=== PATIENT | male | born 1955 | race Caucasian/White ===

== ENCOUNTER 2018-03-28 19:10 | Emergency (ER) | payer OTHER ==
[2018-03-28 19:28] VITALS: BP 137/93; PULSE 59; TEMP 98.5; BMI 25.3
[2018-03-28] MEDS ORDERED: IBUPROFEN 600 MG TABLET (FP) PO ONE ×2 (19:36→19:41)
--- NOTE | 2018-03-28 19:36 | PDOC ---
History of Present Illness - General History Source: Patient Exam Limitations: No Limitations - History of Present Illness Initial Comments: 03/28/18 19:40 The patient is a 62 year old male presenting with his , who presents to the ED complaining of with chest pain onset today. He reports that he was walking when he slipped on ice and made a windmill like motion but did not fall. He notes that hours later he began to feel a pain on the left side of his chest which is mild in severity. He denies any radiation of the pain and reports pain exacerbation when he takes a deep breath. He denies taking any medication for the pain. He went to an urgent care prior to coming to the ED and had an EKG that was normal. He came to the ED for a second opinion. He reports that his father had an CT in his 70s and recovered. The patient denies shortness of breath, headache and dizziness. Denies fever, chills, nausea, vomiting, diarrhea or constipation. PAST MEDICAL HISTORY: no significant history PAST SURGICAL HISTORY: hernia surgery FAMILY HISTORY: no pertinent history SOCIAL HISTORY: Pt lives with family and is employed. MEDICATIONS: reviewed ALLERGIES: As per nursing notes GENERAL: The patient is awake, alert, and fully oriented, in no acute distress. HEAD: Normal with no signs of trauma. EYES: Pupils equal, round and reactive to light, extraocular movements intact, sclera anicteric, conjunctiva clear. EXTREMITIES: Normal range of motion, no edema. NEUROLOGICAL: Normal speech, normal gait. PSYCH: Normal mood, normal affect. SKIN: Warm, Dry, normal turgor, no rashes or lesions noted. <You Crews - Last Filed: 03/28/18 19:40> - General History Source: Patient Exam Limitations: No Limitations - History of Present Illness Initial Comments: 03/28/18 19:37 A portion of this note was documented by scribe services under my direction. I have reviewed the details of the note, within reason, and agree with the documentation with the following case summary and management plan written by me. Patient treated in the ED. Nursing notes are reviewed and incorporated into the medical decision-making. Vital signs reviewed. Assessment plan: This is 62-year-old male who slipped and nearly fell on the ice this morning. Patient said he did a lot of wind mentally but was able to regain his balance. This happened about 9 AM this morning approximately 6 hours later patient developed left-sided chest pain. Worse with movement and worse with coughing worse with deep breath. Patient has no cardiac risk factors other than a family history of coronary artery disease with father who had a heart attack. Patient's EKG shows sinus bradycardia cardiac rate of [address]-T wave changes Cardiac enzymes will be sent if they are normal patient will be discharged home with a diagnosis of muscle strain and told to take anti-inflammatories. Patient will be given Motrin in the ED here 03/28/18 20:42 Patient's heart score is to his troponin is negative. Patient discharged home on NSAIDs <Kelly Nair I - Last Filed: 03/28/18 20:42> - General Chief Complaint: Injury Stated Complaint: KEFT SIDE CHEST PAIN Time Seen by Provider: 03/28/18 19:12 Past History <You Crews - Last Filed: 03/28/18 19:40> - Past Medical History COPD: No - Suicide/Smoking/Psychosocial Hx Smoking History: Never smoked Have you smoked in the past 12 months: No Information on smoking cessation initiated: No Hx Alcohol Use: No Drug/Substance Use Hx: No <Kelly Nair I - Last Filed: 03/28/18 20:42> - Past Medical History Allergies/Adverse Reactions: Allergies Allergy/AdvReac Type Severity Reaction Status Date / Time doxycycline Allergy Verified 03/28/18 19:12 Home Medications: Ambulatory Orders NK [No Known Home Medication] 03/28/18 *Physical Exam - Vital Signs Last Vital Signs Temp Pulse Resp BP Pulse Ox 98.5 F 59 L 20 137/93 98 03/28/18 19:11 03/28/18 19:11 03/28/18 19:11 03/28/18 19:11 03/28/18 19:11 <You Crews - Last Filed: 03/28/18 19:40> - Vital Signs Last Vital Signs Temp Pulse Resp BP Pulse Ox 98.5 F 59 L 20 137/93 98 03/28/18 19:11 03/28/18 19:11 03/28/18 19:11 03/28/18 19:11 03/28/18 19:11 <Kelly Nair I - Last Filed: 03/28/18 20:42> Moderate Sedation - Procedure Monitoring Vital Signs: Procedure Monitoring Vital Signs Temperature 98.5 F 03/28/18 19:11 Pulse Rate 59 L 03/28/18 19:11 Respiratory Rate 20 03/28/18 19:11 Blood Pressure 137/93 03/28/18 19:11 O2 Sat by Pulse Oximetry (%) 98 03/28/18 19:11 <You Crews - Last Filed: 03/28/18 19:40> - Procedure Monitoring Vital Signs: Procedure Monitoring Vital Signs Temperature 98.5 F 03/28/18 19:11 Pulse Rate 59 L 03/28/18 19:11 Respiratory Rate 20 03/28/18 19:11 Blood Pressure 137/93 03/28/18 19:11 O2 Sat by Pulse Oximetry (%) 98 03/28/18 19:11 <Kelly Nair I - Last Filed: 03/28/18 20:42> Heart Score/ECG Review - History History: Slightly suspicious - Electrocardiogram EKG: Normal - Age Age: 45-65 - Risk Factors Risk Factors Heart Score: Yes Positive family hx of cardiac disease Based on the list above the patient has:: 1-2 risk factors - Troponin Troponin: </= normal limit - Score Heart Score - Total: 2 <Kelly Nair I - Last Filed: 03/28/18 20:42> *DC/Admit/Observation/Transfer - Attestations Scribe Attestion: 03/28/18 19:40 Documentation prepared by You Crews, acting as director of graduate medical education for Kelly Nair MD <You Crews - Last Filed: 03/28/18 19:40> - Discharge Dispostion Decision to Admit order: No <Kelly Nair I - Last Filed: 03/28/18 20:42> Diagnosis at time of Disposition: Muscle strain of chest wall Qualifiers: Encounter type: initial encounter Qualified Code(s): S29.011A - Strain of muscle and tendon of front wall of thorax, initial encounter - Discharge Dispostion Disposition: HOME - Patient Instructions Additional Instructions: It is important that you take an anti-inflammatory for the next 3-4 days. Take ibuprofen 3 tablets 3 times a day with food for 3-4 days. Return to the emergency department immediately with ANY new, persistent or worsening symptoms. Continue any medications as previously prescribed by your physician. You should follow up with your primary doctor as soon as possible regarding today's emergency department visit. . Please make sure your doctor reviews the results of your emergency evaluation. Thank you for coming to the Emergency Department today for your care. It was a pleasure to see you today. Please note that your evaluation is INCOMPLETE until you follow-up with your doctor.
--- NOTE | 2018-03-29 15:45 | EKG ---
Test Reason : Blood Pressure : / mmHG Vent. Rate : 059 BPM Atrial Rate : 059 BPM P-R Int : 186 ms QRS Dur : 100 ms QT Int : 420 ms P-R-T Axes : 069 -35 017 degrees QTc Int : 415 ms SINUS BRADYCARDIA LEFT AXIS DEVIATION ABNORMAL ECG NO PREVIOUS ECGS AVAILABLE Confirmed by CHAVO MEDINA, MIYA ([id number]) on 03/29/2018 3:45:01 PM Referred By: MD CACERES Confirmed By:MIYA TONY MD
== END 2018-03-28 20:49 | disposition home or self-care (01) ==
LOC: FER 19:10
DX: S29.011A Strain of muscle and tendon of front wall of thorax, initial encounter (principal); X58.XXXA Exposure to other specified factors, initial encounter; Y93.89 Activity, other specified; Y92.89 Other specified places as the place of occurrence of the external cause
CPT/HCPCS: 36415; 82550; 82553; 84484; 93005; 99282-25

== ENCOUNTER 2018-04-06 04:35 | Emergency (ER) | payer OTHER ==
[2018-04-06 04:47] VITALS: TEMP 98; BMI 25.3
--- NOTE | 2018-04-06 04:56 | PDOC ---
History of Present Illness - General Chief Complaint: Pain, Acute Stated Complaint: LT GROIN/ABDOMINAL PAIN Time Seen by Provider: 04/06/18 04:56 History Source: Patient Exam Limitations: No Limitations - History of Present Illness Initial Comments: 04/06/18 05:21 This is a 62-year-old male who comes in complaining of acute onset about 2 hours ago of left testicular and left lower quadrant abdominal pain. Patient said he had similar pain yesterday that was relieved with having a bowel movement. Patient denies any fevers or chills. Patient said he has had some mild nausea But no vomiting or diarrhea. Patient denies history of similar symptoms in the past. Patient otherwise is healthy and takes no medications. Allergies: None Past Medical History: none Social history: Lives with family. No smoking. No alcohol. No illicit drugs. Surgical history: None General: No fevers or chills, no weakness, no weight loss HEENT: No change in vision. No sore throat,. No ear pain CardioVascular: no chest discomfort. No shortness of breath Respiratory:No cough, or wheezing. Gastrointestinal: no nausea, vomiting, diarrhea or constipation, No rectal bleeding, + left flank pain radiating to left groin Genitourinary: No dysuria, hematuria, or frequency Musculoskeletal: No joint or muscle pain or swelling Neurologic: No headache, vertigo, dizziness or loss of consciousness Psychiatric: nor depression Skin: No rashes or easy bruising Endocrine: no increased thirst or abnormal weight change Allergic: no skin or latex allergy All other systems reviewed and normal Exam: General: Well-nourished well-developed individual, no acute distress HEENT: Throat: Normal, tonsils normal, no erythema or exudate Neck: Supple, no meningeal signs, no lymphadenopathy Eyes::Pupils equal reactive and round, extraocular motion intact Chest: Nontender to palpation Cardiac: S1-S2 normal, regular rate and rhythm, no murmurs rubs or gallops Respiratory: Lungs clear to auscultation bilateral Abdomen: Soft, nondistended, normal bowel sounds, there is some tenderness on palpation left lower quadrant : Circumcised penis with normal cremaster reflex, no palpable hernia, no lesions Extremities: Warm, dry, no cyanosis, clubbing, or edema Skin: No rashes Neuro: Alert and oriented x3, CN II - XII intact, nonfocal exam with normal strength, normal sensation, normal reflexes, normal gait, Psych: Normal mood and affect Assessment and plan: This is 62-year-old male who comes in complaining of left flank pain radiating to his left testicles. Will obtain workup including CBC, comp, UA and noncontrast CT abdomen and pelvis 04/06/18 07:00 Reevaluation patient feels much better, patient's urinalysis is positive for red cells white cells bacteria consistent with a urinary tract infection. However given patient's degree of flank pain I also obtained a CT scan which is still pending at this time. Care of patient transferred to Dr. Claudio Jc at 7 AM Case discussed in detail with oncoming Emergency Physician including history, physical exam and ancillary studies. Oncoming Emergency Physician has assumed care for the patient and will complete the evaluation and treatment. Patient is aware of the plan. Pt is clinically unchanged and stable. Past History - Past Medical History Allergies/Adverse Reactions: Allergies Allergy/AdvReac Type Severity Reaction Status Date / Time doxycycline Allergy Verified 03/28/18 19:12 Home Medications: Ambulatory Orders Tamsulosin HCl [Flomax] 0.4 mg PO HS #3 capsule 04/06/18 COPD: No - Surgical History Abdominal Surgery: Yes (LT INGUINAL HERNIA) - Suicide/Smoking/Psychosocial Hx Smoking History: Never smoked Have you smoked in the past 12 months: No Hx Alcohol Use: No Drug/Substance Use Hx: No *Physical Exam - Vital Signs Last Vital Signs Temp Pulse Resp BP Pulse Ox 98 F 82 16 117/80 100 04/06/18 04:39 04/06/18 04:39 04/06/18 04:39 04/06/18 04:39 04/06/18 04:39 Moderate Sedation - Procedure Monitoring Vital Signs: Procedure Monitoring Vital Signs Temperature 98 F 04/06/18 04:39 Pulse Rate 82 04/06/18 04:39 Respiratory Rate 16 04/06/18 04:39 Blood Pressure 117/80 04/06/18 04:39 O2 Sat by Pulse Oximetry (%) 100 04/06/18 04:39 ED Treatment Course - LABORATORY CBC & Chemistry Diagram: 04/06/18 05:12 04/06/18 05:12 *DC/Admit/Observation/Transfer Diagnosis at time of Disposition: Renal stone - Discharge Dispostion Disposition: HOME Condition at time of disposition: Stable - Prescriptions Prescriptions: Tamsulosin HCl [Flomax] 0.4 mg PO HS #3 capsule - Referrals Referrals: Gareth Newberry MD [Staff Physician] - Sondra Lynch [Primary Care Provider] - - Patient Instructions Printed Discharge Instructions: Kidney Stones -- Adult Additional Instructions: Drink plenty of fluids. If in 1 week. Return to emergency department for any fever severe abdominal pain vomiting inability urinate or for any concerns. - Post Discharge Activity
[2018-04-06] MEDS ORDERED: SODIUM CHLORIDE 1,000 ML IV ONE (05:16)
[2018-04-06] MEDS ORDERED: KETOROLAC TROMETHAMINE 30 MG/1 ML VIAL IVPUSH ONE (05:16)
[2018-04-06] MEDS ORDERED: KETOROLAC TROMETHAMINE 30 MG/1 ML VIAL ONE (05:17)
[2018-04-06] MEDS ORDERED: ONDANSETRON *ODT* 4 MG TABLET SL ONE (05:22)
[2018-04-06] MEDS ORDERED: ONDANSETRON 4 MG/2 ML VIAL ONE (05:23)
[2018-04-06] MEDS ORDERED: ONDANSETRON 4 MG/2 ML VIAL IVPUSH ONE (05:23)
[2018-04-06 05:51] LABS: BASO % 0.6 % (0-2.0); EOS % 1.1 % (0-4.5); HEMATOCRIT 41.2 % (35.4-49); HEMOGLOBIN 14.4 GM/dL (11.7-16.9); LYMPH % 17.7 % (8-40); MCHC 34.9 g/dl (32.0-35.9); MEAN CELL VOLUME 91.6 fl (80-96); MEAN PLT VOLUME 8.1 fl (7.5-11.1); MONO % 8.7 % (3.8-10.2); NEUT % 71.9 % (42.8-82.8); PLATELET COUNT 211 K/MM3 (134-434); WHITE BLOOD COUNT 7.2 K/mm3 (4.0-10.0)
[2018-04-06 06:20] LABS: ALBUMIN 3.4 g/dl (3.4-5.0); ALK PHOS 61 U/L (45-117); ANION GAP 5 MMOL/L (8-16); BILIRUBIN,TOTAL 0.4 mg/dL (0.2-1); BLOOD UREA NITROGEN 28 mg/dL (7-18); CALCIUM 8.2 mg/dL (8.5-10.1); CHLORIDE 104 mmol/L (98-107); CO2 29 mmol/L (21-32); CREATININE 1.2 mg/dL (0.55-1.3); GLUCOSE,RANDOM 101 mg/dL (74-106); LIPASE 150 U/L (73-393); SGOT/AST 17 U/L (15-37); SGPT/ALT 22 U/L (13-61); SODIUM 138 mmol/L (136-145); TOT PROT 6.6 g/dl (6.4-8.2)
[2018-04-06 06:49] LABS: URINE APPEARANCE Clear; URINE BILIRUBIN Negative (NEGATIVE); URINE COLOR Amber; URINE GLUCOSE (UA) Negative (NEGATIVE); URINE KETONE Negative (NEGATIVE); URINE LEUK ESTERASE 1+ (NEGATIVE); URINE NITRITE Negative (NEGATIVE); URINE PROTEIN Negative (NEGATIVE); URINE UROBILINOGEN 0.2 (0.2-1.0)
[2018-04-06 07:03] LABS: EPI CELLS FEW /HPF
[2018-04-06 07:25] LABS: URINE RBC 0-2 /hpf (0-3)
--- NOTE | 2018-04-06 07:44 | PDOC ---
*Physical Exam - Vital Signs Last Vital Signs Temp Pulse Resp BP Pulse Ox 98 F 82 16 117/80 100 04/06/18 04:39 04/06/18 04:39 04/06/18 04:39 04/06/18 04:39 04/06/18 04:39 ED Treatment Course - LABORATORY CBC & Chemistry Diagram: 04/06/18 05:12 04/06/18 05:12 - ADDITIONAL ORDERS Additional order review: Laboratory Results 04/06/18 04/06/18 06:23 05:12 Sodium 138 Potassium 4.0 Chloride 104 Carbon Dioxide 29 Anion Gap 5 L BUN 28 H Creatinine 1.2 Creat Clearance w eGFR > 60 Random Glucose 101 Calcium 8.2 L Total Bilirubin 0.4 AST 17 ALT 22 Alkaline Phosphatase 61 Total Protein 6.6 Albumin 3.4 Lipase 150 Urine Color Bhavya Urine Appearance Clear Urine pH 7.0 Ur Specific [place] 1.010 Urine Protein Negative Urine Glucose (UA) Negative Urine Ketones Negative Urine Blood Trace-intact H Urine Nitrite Negative Urine Bilirubin Negative Urine Urobilinogen 0.2 Ur Leukocyte Esterase 1+ H Urine RBC 0-2 Urine WBC 2-5 Ur Epithelial Cells Few Urine Bacteria 04/06/18 05:12 RBC 4.50 MCV 91.6 MCHC 34.9 RDW 13.0 MPV 8.1 Neutrophils % 71.9 Lymphocytes % 17.7 Monocytes % 8.7 Eosinophils % 1.1 Basophils % 0.6 - Medications Given in the ED: ED Medications Discontinued Medications Generic Name Dose Route Start Last Admin Trade Name Freq PRN Reason Stop Dose Admin Sodium Chloride 1,000 mls @ 1,000 mls/hr 04/06/18 05:16 04/06/18 05:21 Normal Saline - IV 04/06/18 06:15 1,000 mls/hr .Q1H ONE Administration Ketorolac Tromethamine 30 mg 04/06/18 05:16 04/06/18 05:21 Toradol Injection - IVPUSH 04/06/18 05:17 30 mg ONCE ONE Administration Ondansetron HCl 4 mg 04/06/18 05:22 04/06/18 06:24 Zofran Odt - SL 04/06/18 05:23 Not Given ONCE ONE Ondansetron HCl 4 mg 04/06/18 05:23 04/06/18 06:23 Zofran Injection IVPUSH 04/06/18 05:24 Not Given ONCE ONE Medical Decision Making - Medical Decision Making 04/06/18 07:41 Patient signed out to me pending CAT scan CAT scan demonstrates 3 mm stone at the left UVJ imaging staff nuclear weapons officer read Patient well-appearing no apparent distress will discharge with NSAIDs Flomax and urology follow-up Findings, the need for follow-up and strict return instructions discussed with patient. *DC/Admit/Observation/Transfer Diagnosis at time of Disposition: Renal stone - Discharge Dispostion Disposition: HOME Condition at time of disposition: Stable Decision to Admit order: No - Referrals Referrals: Sondra Lynch [Primary Care Provider] - Gareth Newberry MD [Staff Physician] - - Patient Instructions Printed Discharge Instructions: Kidney Stones -- Adult Additional Instructions: Drink plenty of fluids. If in 1 week. Return to emergency department for any fever severe abdominal pain vomiting inability urinate or for any concerns. - Post Discharge Activity
[2018-04-06 07:50] VITALS: BP 135/84; PULSE 86
== END 2018-04-06 08:13 | disposition home or self-care (01) ==
LOC: FER 04:35
PROC: 3E0333Z Introduction of Anti-inflammatory into Peripheral Vein, Percutaneous Approach (ICD-10-PCS; principal; 2018-04-06)
PROC: 3E0337Z Introduction of Electrolytic and Water Balance Substance into Peripheral Vein, Percutaneous Approach (ICD-10-PCS; 2018-04-06)
DX: N20.0 Calculus of kidney (principal)
CPT/HCPCS: 36415; 74176-TC; 80053; 81003; 81015; 83690; 85025; 99283-25; J7030